=== PATIENT | male | born 1970 | race Caucasian/White ===

== ENCOUNTER 2023-05-18 12:58 | Outpatient (CLI) | payer BC, SELFPAY | END 2023-05-18 12:59 | disposition home or self-care (01) | PROVIDERS: PCP Family Medicine; Visit Provider Family Medicine | DX: Z13.6 Encounter for screening for cardiovascular disorders (principal); Z12.5 Encounter for screening for malignant neoplasm of prostate | CPT/HCPCS: 80048; 80061; 84153 ==

== ENCOUNTER 2023-06-17 15:02 | Outpatient (CLI) | payer BC, SELFPAY | END 2023-06-17 15:03 | disposition home or self-care (01) | LOC: RAD 15:02 | PROVIDERS: PCP Family Medicine; Visit Provider Family Medicine | DX: Q23.1 Congenital insufficiency of aortic valve (principal); I51.7 Cardiomegaly; I34.0 Nonrheumatic mitral (valve) insufficiency; I35.1 Nonrheumatic aortic (valve) insufficiency | CPT/HCPCS: 93306 ==